=== PATIENT | female | born 1985 | race Caucasian/White ===

== ENCOUNTER 2023-02-04 13:50 | Emergency (ER) | payer MEDICAID, SELFPAY ==
[2023-02-04 14:10] VITALS: TEMP 36.8; O2SAT 100
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
[2023-02-04 15:47] LABS: *AMPHETAMINES SCREEN URINE Negative (Negative); *BARBITURATES SCREEN URINE Negative (Negative); *BENZODIAZEPINES SCREEN URINE Negative (Negative); Cannabinoids THC Positive (Negative); Cocaine Screen,Urine Negative (Negative); METHADONE URINE SCREEN Negative (Negative); OPIATES URINE SCREEN Negative (Negative)
[2023-02-04 15:49] LABS: Tricyclic Antidepressants Negative (Negative)
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
[2023-02-04 17:04] VITALS: BP 137/90; PULSE 90; RESP 18; TEMP 36.7; O2SAT 98
== END 2023-02-04 17:05 | disposition home or self-care (01) ==
PROVIDERS: Student in an Organized Health Care Education/Training Program; Emergency Provider Emergency Medicine
DX: F43.10 Post-traumatic stress disorder, unspecified (principal); Y09 Assault by unspecified means
CPT/HCPCS: 80307; 81025; 87637; 99283